=== PATIENT | female | born 1980 | race Hispanic/Latino ===

== ENCOUNTER 2021-09-26 10:14 | Outpatient (CLI) | payer BC ==
[2021-09-26 10:51] LABS: Hemoglobin 10.7 g/dL (12.0-15.5); Mean Corpuscular HGB CONC 29.2 g/dL (32.0-36.0); Mean Corpuscular Hemoglobin 21.3 pg (27.0-33.0); Mean Corpuscular Volume 72.8 fl (81.6-98.3); Mean Platelet Volume 9.3 fl (7.4-10.4); Platelet Count 311 10x3/uL (150-450); RBC Distribution Width 17.2 % (11.5-14.5); Red Blood Cell (RBC) Count 5.03 10x6/uL (3.90-5.03); White Blood Cell (WBC) Count 12.1 10x3/uL (3.5-10.5)
[2021-09-26 11:18] LABS: BHCG - Serum Negative (NEGATIVE); Pregs Control Background? CLEAR/WHITE (CLR/WHITE); Pregs Control Bar Appear? YES (CONTROL BAR)
[2021-09-26 11:22] LABS: Anion Gap 15 mmol/L (10-20); BUN (Urea Nitrogen) 13 mg/dL (7.0-18.7); Calc. Creatinine Clearance 0 mL/min (70-130); Calcium 9.4 mg/dL (7.8-10.44); Carbon Dioxide 24 mmol/L (22-29); Chloride 102 mmol/L (98-107); Glucose 218 mg/dL (70-105); Potassium 3.9 mmol/L (3.5-5.1); Sodium 137 mmol/L (136-145)
[2021-09-26 21:26] LABS: SARS-CoV-2 PCR by NAA DETECTED (NotDetected)
== END 2021-09-26 10:15 | disposition home or self-care (01) ==
LOC: CSHLAB 10:14
PROVIDERS: ATTEND Student in an Organized Health Care Education/Training Program
DX: U07.1 COVID-19 (principal); N92.0 Excessive and frequent menstruation with regular cycle
CPT/HCPCS: 80048; 84703; 85027; 86850; 86900; 86901; 93005; 93010; U0003; U0005

== ENCOUNTER 2021-11-19 10:15 | Observation (INO) | payer BC ==
[2021-11-18 10:05] VITALS: BMI 29.2
[2021-11-19] MEDS ORDERED: Gabapentin 300 MG CAP ONE (11:03)
[2021-11-19] MEDS ORDERED: Lidocaine 1% MPF 2 ML VIAL ONE (11:04)
[2021-11-19] MEDS ORDERED: CeleCOXIB 100 MG CAP ONE (11:04)
[2021-11-19] MEDS ORDERED: Famotidine/PF 20 mg/2ml Vial ONE (11:04)
[2021-11-19 11:19] LABS: BHCG - Serum Negative (NEGATIVE); Pregs Control Background? CLEAR/WHITE (CLR/WHITE); Pregs Control Bar Appear? YES (CONTROL BAR)
[2021-11-19 11:27] LABS: Hemoglobin 9.9 g/dL (12.0-15.5); Mean Corpuscular HGB CONC 29.7 g/dL (32.0-36.0); Mean Corpuscular Hemoglobin 19.9 pg (27.0-33.0); Mean Platelet Volume 8.9 fl (7.4-10.4); Platelet Count 308 10x3/uL (150-450); RBC Distribution Width 18.7 % (11.5-14.5); Red Blood Cell (RBC) Count 4.97 10x6/uL (3.90-5.03); White Blood Cell (WBC) Count 8.1 10x3/uL (3.5-10.5)
[2021-11-19] MEDS ORDERED: Fentanyl 100 MCG/2 ML VIAL ONE ×2 (11:49→12:53)
[2021-11-19] MEDS ORDERED: PROPOFOL 20 ML ONE (11:49)
[2021-11-19] MEDS ORDERED: Ondansetron PF 4 MG/2 ML Vial ONE ×2 (11:50→15:14)
[2021-11-19] MEDS ORDERED: Dexamethasone 4 mg/ml Vial ONE (11:50)
[2021-11-19] MEDS ORDERED: Rocuronium Bromide 10 MG/ML (10ML VIAL) ONE (11:50)
[2021-11-19] MEDS ORDERED: Lidocaine 1% PF 5 ML VIAL ONE (11:50)
[2021-11-19] MEDS ORDERED: Bupivacaine PF 0.5% 30 ML VIAL ONE (12:04)
[2021-11-19] MEDS ORDERED: EPINEPHrine 1 MG/ML AMP ONE (12:04)
[2021-11-19] MEDS ORDERED: Midazolam HCl 2 mg/2 ml Vial ONE (12:19)
[2021-11-19] MEDS ORDERED: CEFAZOLIN 2 GM VIAL ONE (12:21)
[2021-11-19] MEDS ORDERED: Glycopyrrolate 0.2 MG/ML 5 ML SYRINGE ONE (14:02)
[2021-11-19] MEDS ORDERED: Acetaminophen 325 MG TAB PO PRN (14:18)
[2021-11-19] MEDS ORDERED: Fentanyl 100 MCG/2 ML VIAL SLOW IVP PRN (14:18)
[2021-11-19] MEDS ORDERED: HYDROcodone/Acetaminophen 5/325 mg Tablet PO PRN (14:18)
[2021-11-19] MEDS ORDERED: Zolpidem Tartrate 5 MG TAB PO PRN (14:18)
[2021-11-19] MEDS ORDERED: Dextrose 5% in Water 1,000 ML IV PRN (14:18)
[2021-11-19] MEDS ORDERED: diphenhydrAMINE 25 MG CAP PO PRN (14:18)
[2021-11-19] MEDS ORDERED: Ondansetron PF 4 MG/2 ML Vial IVP PRN (14:18)
[2021-11-19] MEDS ORDERED: Promethazine HCl 25 MG/ML VIAL IM PRN (14:18)
[2021-11-19] MEDS ORDERED: Dextrose 50% Abboject 50 ML SYRINGE SLOW IVP PRN (14:18)
[2021-11-19] MEDS ORDERED: Bisacodyl 10 MG SUPP PR PRN (14:18)
[2021-11-19] MEDS ORDERED: SUGAMMADEX SODIUM 200 MG/2 ML VIAL ONE (14:30)
[2021-11-19] MEDS: Ketorolac Tromethamine 30 MG/ML VIAL IVP SCH (17:09)
[2021-11-19] MEDS: metFORMIN 500 MG TAB PO SCH (17:10)
[2021-11-19] MEDS: Sodium Chloride 0.9% 1,000 ML IV SCH (17:10)
[2021-11-19] MEDS: HumaLOG 300 UNITS/3 ML VIAL SC PRN ×2 (17:23→21:17)
[2021-11-19] MEDS: Docusate Calcium (SURFAK) 240 MG CAP PO SCH (21:15)
[2021-11-19] MEDS: Lantus 1000 UNITS/10 ML VIAL SC SCH (21:15)
[2021-11-19] MEDS: Simethicone Chewable 80 MG TAB PO PRN (21:28)
[2021-11-19] MEDS: HYDROcodone/Acetaminophen 5/325 mg Tablet PO PRN ×2 (21:28→22:33)
[2021-11-20] MEDS: Ketorolac Tromethamine 30 MG/ML VIAL IVP SCH ×2 (00:34→06:22)
[2021-11-20 04:33] LABS: Hemoglobin 8.4 g/dL (12.0-15.5); Mean Corpuscular HGB CONC 29.9 g/dL (32.0-36.0); Mean Corpuscular Hemoglobin 20.2 pg (27.0-33.0); Mean Corpuscular Volume 67.5 fl (81.6-98.3); Mean Platelet Volume 9.5 fl (7.4-10.4); Platelet Count 313 10x3/uL (150-450); RBC Distribution Width 17.6 % (11.5-14.5); Red Blood Cell (RBC) Count 4.16 10x6/uL (3.90-5.03); White Blood Cell (WBC) Count 16.7 10x3/uL (3.5-10.5)
[2021-11-20] MEDS: Simethicone Chewable 80 MG TAB PO PRN (06:22)
[2021-11-20] MEDS: HumaLOG 300 UNITS/3 ML VIAL SC PRN (06:24)
[2021-11-20] MEDS: Sodium Chloride 0.9% 1,000 ML IV SCH (06:44)
[2021-11-20 07:54] VITALS: BP 118/55; TEMP 98.5
[2021-11-20] MEDS ORDERED: HumaLOG 300 UNITS/3 ML VIAL SC SCH (08:00)
[2021-11-20] MEDS: metFORMIN 500 MG TAB PO SCH (08:35)
[2021-11-20] MEDS: Docusate Calcium (SURFAK) 240 MG CAP PO SCH (08:35)
[2021-11-20] MEDS: Lantus 1000 UNITS/10 ML VIAL SC SCH (08:36)
[2021-11-20] MEDS: HYDROcodone/Acetaminophen 5/325 mg Tablet PO PRN (08:49)
[2021-11-20] MEDS ORDERED: Hydrochlorothiazide 25 MG TAB PO SCH (09:00)
[2021-11-20] MEDS ORDERED: DULoxetine 30 MG CAP PO SCH (09:00)
[2021-11-20] MEDS ORDERED: Losartan 25 MG TAB PO SCH (09:00)
[2021-11-24] MEDS ORDERED: Ibuprofen 800 MG TAB PO SCH (23:59)
== END 2021-11-20 09:29 | disposition home or self-care (01) ==
LOC: CSHSDC 10:15 → CSHPP 15:51
PROVIDERS: ADMIT Student in an Organized Health Care Education/Training Program; ATTEND Student in an Organized Health Care Education/Training Program
PROC: 0UT94ZZ Resection of Uterus, Percutaneous Endoscopic Approach (ICD-10-PCS; principal; 2021-11-19)
PROC: 0UT74ZZ Resection of Bilateral Fallopian Tubes, Percutaneous Endoscopic Approach (ICD-10-PCS; 2021-11-19)
PROC: 8E0W4CZ Robotic Assisted Procedure of Trunk Region, Percutaneous Endoscopic Approach (ICD-10-PCS; 2021-11-19)
DX: D25.9 Leiomyoma of uterus, unspecified (principal); N80.0 Endometriosis of uterus; N83.8 Other noninflammatory disorders of ovary, fallopian tube and broad ligament; K66.0 Peritoneal adhesions (postprocedural) (postinfection); E78.5 Hyperlipidemia, unspecified; I10 Essential (primary) hypertension; E11.9 Type 2 diabetes mellitus without complications; K21.9 Gastro-esophageal reflux disease without esophagitis; Z79.4 Long term (current) use of insulin; Z79.84 Long term (current) use of oral hypoglycemic drugs; Z79.899 Other long term (current) drug therapy; Z88.8 Allergy status to other drugs, medicaments and biological substances
CPT/HCPCS: 36415; 36416; 84703; 85027; 86850; 86900; 86901; 88307; J0171; J0690; J1100; J1815; J1885; J2250; J2405; J2704; J3010; J7050; S0020; S0028